=== PATIENT | male | born 1985 | race Caucasian/White ===

== ENCOUNTER 2017-06-13 21:22 | Emergency (ER) | payer SELFPAY ==
[~2017-06-13] VITALS: Ht 177.8 cm; Wt 84.0 kg
[2017-06-13 21:24] VITALS: BP 150/106; PULSE 114; RESP 16; TEMP 98; O2SAT 96
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
[2017-06-13 22:55] LABS: AUTOMATED NEUTROPHIL # 3.7 TH/MM3 (1.8-7.7); BASOPHIL % 0.7 % (0.0-2.0); EOSINOPHIL # 0.1 TH/MM3 (0-0.4); EOSINOPHIL % 0.7 % (0.0-4.0); HEMATOCRIT 47.8 % (39.0-51.0); HEMO FLAGS DIFF FINAL; LYMPH % 37.2 % (9.0-44.0); LYMPHOCYTE # 2.7 TH/MM3 (1.0-4.8); MEAN CELL VOLUME 94.8 FL (80.0-100.0); MEAN CORPUSCULAR HEMOGLOBIN 32.6 PG (27.0-34.0); MEAN CORPUSCULAR HGB CONC 34.3 % (32.0-36.0); MONO % 10.8 % (0.0-8.0); NEUT % 50.6 % (16.0-70.0); PLATELET COUNT 178 TH/MM3 (150-450); RED BLOOD COUNT 5.04 MIL/MM3 (4.50-5.90); RED CELL DISTRIBUTION WIDTH 13.4 % (11.6-17.2); WHITE BLOOD COUNT 7.2 TH/MM3 (4.0-11.0)
[2017-06-13 23:38] LABS: BICARBONATE 27.3 MEQ/L (21.0-32.0); POTASSIUM 4.5 MEQ/L (3.5-5.1)
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
[2017-06-14 06:25] VITALS: BP 141/84; PULSE 98; RESP 16
[2017-06-14] MEDS ORDERED: FLUMAZENIL 0.5 MG/5 ML VIAL IV PUSH PRN (09:45)
[2017-06-14] MEDS ORDERED: LORazepam 2 MG/ML VIAL IV PUSH PRN ×4 (09:45)
[2017-06-14] MEDS ORDERED: LORazepam 2 MG TAB PO PRN (09:45)
[2017-06-14] MEDS ORDERED: LORazepam 1 MG TAB PO PRN (09:45)
--- NOTE | 2017-06-14 12:37 | PD ---
Physical Exam Time Seen by Provider: 12:35 MONA Dias has evaluated the patient and cleared the patient for discharge. Data Data Last Documented VS Vital Signs Date Time Temp Pulse Resp B/P (MAP) Pulse Ox O2 Delivery O2 Flow Rate FiO2 06/14/17 12:26 06/14/17 06:25 98 16 06/13/17 21:24 98.0 96 Room Air Orders Orders Ct Brain W/O Iv Contrast(Rout) (06/13/17 ) Complete Blood Count With Diff (06/13/17 22:31) Basic Metabolic Panel (Bmp) (06/13/17 22:31) Drug Screen, Random Urine (06/13/17 22:31) Alcohol (Ethanol) (06/13/17 22:31) Psych Screen (06/14/17 01:23) Diet Regular Basic (06/14/17 Breakfast) Alcohol Withdrawal Asmt-Ciwa ONCE (06/14/17 09:37) Flumazenil Inj (Romazicon Inj) (06/14/17 09:45) Lorazepam (Ativan) (06/14/17 09:45) Lorazepam Inj (Ativan Inj) (06/14/17 09:45) Lorazepam (Ativan) (06/14/17 09:45) Lorazepam Inj (Ativan Inj) (06/14/17 09:45) Lorazepam Inj (Ativan Inj) (06/14/17 09:45) Lorazepam Inj (Ativan Inj) (06/14/17 09:45) Diet Regular Basic (06/14/17 Lunch) Ed Discharge Order (06/14/17 12:37) Labs Laboratory Tests Test 06/13/17 22:40 White Blood Count 7.2 TH/MM3 Red Blood Count 5.04 MIL/MM3 Hemoglobin 16.4 GM/DL Hematocrit 47.8 % Mean Corpuscular Volume 94.8 FL Mean Corpuscular Hemoglobin 32.6 PG Mean Corpuscular Hemoglobin Concent 34.3 % Red Cell Distribution Width 13.4 % Platelet Count 178 TH/MM3 Mean Platelet Volume 8.3 FL Neutrophils (%) (Auto) 50.6 % Lymphocytes (%) (Auto) 37.2 % Monocytes (%) (Auto) 10.8 % Eosinophils (%) (Auto) 0.7 % Basophils (%) (Auto) 0.7 % Neutrophils # (Auto) 3.7 TH/MM3 Lymphocytes # (Auto) 2.7 TH/MM3 Monocytes # (Auto) 0.8 TH/MM3 Eosinophils # (Auto) 0.1 TH/MM3 Basophils # (Auto) 0.0 TH/MM3 CBC Comment DIFF FINAL Differential Comment Blood Urea Nitrogen 17 MG/DL Creatinine 0.68 MG/DL Random Glucose 89 MG/DL Calcium Level 8.2 MG/DL Sodium Level 140 MEQ/L Potassium Level 4.5 MEQ/L Chloride Level 104 MEQ/L Carbon Dioxide Level 27.3 MEQ/L Anion Gap 9 MEQ/L Estimat Glomerular Filtration Rate 134 ML/MIN Urine Opiates Screen NEG Urine Barbiturates Screen NEG Urine Amphetamines Screen NEG Urine Benzodiazepines Screen POS Urine Cocaine Screen NEG Urine Cannabinoids Screen NEG Ethyl Alcohol Level 362 MG/DL MDM Supervised Visit with AWA: No Narrative Course MONA Bacon has evaluated the patient and cleared the patient for discharge. Patient contracts safety. Denies suicidal or homicidal ideations. Patient will be provided community resource packet to /[facility] for follow-up. Has friends and family for support. Patient is medically cleared for discharge. Diagnosis Primary Impression: Bizarre behavior Referrals: [facility] (Out patient) [facility] Primary Care Physician Psychiatrist [facility] Patient Instructions: General Instructions, Mood Disorders (ED) Additional Instruction: Contract safety to your self and others Follow-up with psychiatry Follow-up with primary care provider Follow-up with Cristofer Weeks Return to the emergency department immediately with worsening of symptoms Med/Other Pt SpecificInfo: No Change to Meds, No Meds Exist/No RX given Scripts No Active Prescriptions or Reported Meds Disposition: 01 DISCHARGE HOME Condition: Stable Leanne Sanchez Jun 14, 2017 12:37
--- NOTE | 2017-06-14 12:45 | PD ---
Physical Exam Date Seen by Provider: Jun 14, 2017 Time Seen by Provider: 12:43 Narrative 31-year-old male patient previously medically clear for psychiatric evaluation, has been seen and evaluated by psychiatric services deemed psychiatrically stable for discharge with follow-up with Cristofer Fleming. Patient remains medically stable for discharge at this time. Data Data Last Documented VS Vital Signs Date Time Temp Pulse Resp B/P (MAP) Pulse Ox O2 Delivery O2 Flow Rate FiO2 06/14/17 12:26 06/14/17 06:25 98 16 06/13/17 21:24 98.0 96 Room Air Orders Orders Ct Brain W/O Iv Contrast(Rout) (06/13/17 ) Complete Blood Count With Diff (06/13/17 22:31) Basic Metabolic Panel (Bmp) (06/13/17 22:31) Drug Screen, Random Urine (06/13/17 22:31) Alcohol (Ethanol) (06/13/17 22:31) Psych Screen (06/14/17 01:23) Diet Regular Basic (06/14/17 Breakfast) Alcohol Withdrawal Asmt-Ciwa ONCE (06/14/17 09:37) Flumazenil Inj (Romazicon Inj) (06/14/17 09:45) Lorazepam (Ativan) (06/14/17 09:45) Lorazepam Inj (Ativan Inj) (06/14/17 09:45) Lorazepam (Ativan) (06/14/17 09:45) Lorazepam Inj (Ativan Inj) (06/14/17 09:45) Lorazepam Inj (Ativan Inj) (06/14/17 09:45) Lorazepam Inj (Ativan Inj) (06/14/17 09:45) Diet Regular Basic (06/14/17 Lunch) Ed Discharge Order (06/14/17 12:37) Labs Laboratory Tests Test 06/13/17 22:40 White Blood Count 7.2 TH/MM3 Red Blood Count 5.04 MIL/MM3 Hemoglobin 16.4 GM/DL Hematocrit 47.8 % Mean Corpuscular Volume 94.8 FL Mean Corpuscular Hemoglobin 32.6 PG Mean Corpuscular Hemoglobin Concent 34.3 % Red Cell Distribution Width 13.4 % Platelet Count 178 TH/MM3 Mean Platelet Volume 8.3 FL Neutrophils (%) (Auto) 50.6 % Lymphocytes (%) (Auto) 37.2 % Monocytes (%) (Auto) 10.8 % Eosinophils (%) (Auto) 0.7 % Basophils (%) (Auto) 0.7 % Neutrophils # (Auto) 3.7 TH/MM3 Lymphocytes # (Auto) 2.7 TH/MM3 Monocytes # (Auto) 0.8 TH/MM3 Eosinophils # (Auto) 0.1 TH/MM3 Basophils # (Auto) 0.0 TH/MM3 CBC Comment DIFF FINAL Differential Comment Blood Urea Nitrogen 17 MG/DL Creatinine 0.68 MG/DL Random Glucose 89 MG/DL Calcium Level 8.2 MG/DL Sodium Level 140 MEQ/L Potassium Level 4.5 MEQ/L Chloride Level 104 MEQ/L Carbon Dioxide Level 27.3 MEQ/L Anion Gap 9 MEQ/L Estimat Glomerular Filtration Rate 134 ML/MIN Urine Opiates Screen NEG Urine Barbiturates Screen NEG Urine Amphetamines Screen NEG Urine Benzodiazepines Screen POS Urine Cocaine Screen NEG Urine Cannabinoids Screen NEG Ethyl Alcohol Level 362 MG/DL MDM Medical Record Reviewed: Yes Supervised Visit with AWA: Yes Narrative Course 31-year-old male patient previously medically clear for psychiatric evaluation, has been seen and evaluated by psychiatric services deemed psychiatrically stable for discharge with follow-up with Cristofer Fleming. Patient remains medically stable for discharge at this time. Diagnosis Primary Impression: Bizarre behavior Referrals: [facility] (Out patient) [facility] Behavioral as needed Mental Health and Substance Abuse Patient Instructions: General Instructions, Medical Clearance for Psychiatric Care (ED) Departure Forms: Tests/Procedures Additional Instruction: DX: Alcohol Abuse, Bizarre Behavior Please return to ED if symptoms worsen. Scripts No Active Prescriptions or Reported Meds Disposition: 01 DISCHARGE HOME Condition: Stable Moy Draper Jun 14, 2017 12:45
[2017-06-14 12:58] VITALS: BP 141/84; PULSE 98; RESP 16
== END 2017-06-14 14:07 | disposition home or self-care (01) ==
LOC: NEPD 21:22 → NEPJ 06-14 14:07
DX: F29 Unspecified psychosis not due to a substance or known physiological condition (principal); F10.10 Alcohol abuse, uncomplicated; I10 Essential (primary) hypertension; Y90.8 Blood alcohol level of 240 mg/100 ml or more; Z72.0 Tobacco use
CPT/HCPCS: 70450; 80048; 80307; 85025